=== PATIENT | male | born 2000 | race Caucasian/White ===

== ENCOUNTER 2023-11-11 10:53 | Inpatient (IN) | payer OTHER ==
[~2023-11-11] VITALS: Ht 182.9 cm; Wt 97.7 kg
[2023-11-11] MEDS ORDERED: BUSP10TA PO (11:05)
[2023-11-11] MEDS ORDERED: LAMI25CH PO (11:05)
[2023-11-11] MEDS ORDERED: SERO1TAB3 PO (11:05)
[2023-11-11] MEDS ORDERED: LAMI25TA PO (11:39)
[2023-11-11] MEDS ORDERED: HOME MED LIST COMPLETE! XX SCH (11:40)
[2023-11-11 11:47] LABS: HEMATOCRIT 45.1 % (42.0-52.0); HEMOGLOBIN 15.1 g/dl (13.5-17.5); MEAN CORPUSCULAR HEMOGLOBIN 29.4 pg (27.0-33.0); MEAN CORPUSCULAR HGB CONC 33.5 g/dl (32.0-36.5); MEAN CORPUSCULAR VOLUME 87.9 fl (80.0-96.0); PLATELET COUNT, AUTOMATED 300 10^3/uL (150-450); RED BLOOD COUNT 5.13 10^6/uL (4.30-6.10); WHITE BLOOD COUNT 7.5 10^3/uL (4.0-10.0)
[2023-11-11 12:15] LABS: ETHYL ALCOHOL (ETHANOL) 0.005 % (0.000-0.010)
[2023-11-11 12:16] LABS: ALBUMIN 4.4 G/DL (3.2-5.2); ALKALINE PHOSPHATASE 79 U/L (46-116); ALT/SGPT 36 U/L (7.0-40); AST/SGOT 22 U/L (<34); BILIRUBIN,DIRECT 0.2 MG/DL (<0.4); BILIRUBIN,TOTAL 0.4 MG/DL (0.3-1.2); BLOOD UREA NITROGEN 7 MG/DL (9-23); CALCIUM LEVEL 9.7 MG/DL (8.5-10.1); CARBON DIOXIDE LEVEL 28 MMOL/L (20-31); CHLORIDE LEVEL 106 MMOL/L (98-107); CREATININE FOR GFR 1.07 MG/DL (0.70-1.30); GLOMERULAR FILTRATION RATE > 60.0 (>60); GLUCOSE, FASTING 93 MG/DL (60-100); POTASSIUM SERUM 4.2 MMOL/L (3.5-5.1); SALICYLATE LEVEL < 3.0 MG/DL (<30); SODIUM LEVEL 137 MMOL/L (136-145); TOTAL PROTEIN 7.7 G/DL (5.7-8.2)
[2023-11-11 12:18] LABS: THYROID STIMULATING HORMONE 1.478 uIU/ML (0.55-4.78)
[2023-11-11 13:02] LABS: AMPHETAMINES LEVEL URINE NEGATIVE (NEGATIVE); BARBITURATES URINE NEGATIVE (NEGATIVE); BENZODIAZEPINES URINE NEGATIVE (NEGATIVE); CANNABINOIDS URINE NEGATIVE (NEGATIVE); COCAINE METABOLITE URINE NEGATIVE (NEGATIVE); METHADONE URINE NEGATIVE (NEGATIVE); OPIATES URINE NEGATIVE (NEGATIVE); PHENCYCLIDINE URINE NEGATIVE (NEGATIVE)
[2023-11-11] MEDS: busPIRone 10 MG TAB PO SCH (17:06)
[2023-11-11] MEDS: lamoTRIgine 25MG TAB PO SCH (21:20)
[2023-11-11] MEDS: QUEtiapine FUMARATE 25 MG TAB PO SCH (21:20)
[2023-11-13] MEDS ORDERED: MAALOX 30 ML SUSP *UDC PO PRN (13:20)
[2023-11-13] MEDS ORDERED: MOM 30ML SUSPENSION UDC PO PRN (13:20)
[2023-11-13] MEDS ORDERED: ACETAMINOPHEN TAB 650MG DOSE (2X325MG) PO PRN (13:20)
[2023-11-13] MEDS ORDERED: IBUPROFEN 400MG TAB PO PRN (13:20)
[2023-11-13 16:46] VITALS: BP 124/71; TEMP 98.3; O2SAT 98
[2023-11-13 20:45] VITALS: BP 124/71; TEMP 98.3; O2SAT 98
[2023-11-13] MEDS: traZODone 50 MG TAB PO PRN (20:52)
[2023-11-14 06:35] VITALS: BP 105/60; TEMP 98.3; O2SAT 98
[2023-11-14 19:09] VITALS: BP 138/96; TEMP 98.7
[2023-11-14] MEDS: diphenhydrAMINE 25MG CAP PO PRN (21:08)
[2023-11-15 06:27] VITALS: BP 113/55; TEMP 98; O2SAT 98
[2023-11-15 17:46] VITALS: BP 127/80; TEMP 98.8; O2SAT 99
[2023-11-16 06:34] VITALS: BP 118/65; TEMP 98.1; O2SAT 98
[2023-11-16 16:00] VITALS: BP 126/84; TEMP 98.3; O2SAT 99
[2023-11-17 06:41] VITALS: BP 121/65; TEMP 97.7; O2SAT 97
[2023-11-17 16:08] VITALS: BP 126/63; TEMP 97.7; O2SAT 97
[2023-11-18 06:54] VITALS: BP 133/72; TEMP 97.4; O2SAT 98
[2023-11-18 16:00] VITALS: BP 123/61; TEMP 98.3; O2SAT 100
[2023-11-19 06:10] VITALS: BP 113/56; TEMP 97.5; O2SAT 98
[2023-11-19] MEDS ORDERED: BUSP10TA PO (11:52)
[2023-11-19] MEDS ORDERED: TRAZ-252 PO (11:52)
[2023-11-19] MEDS ORDERED: LAMI25TA PO (11:52)
[2023-11-19] MEDS ORDERED: SERO1TAB3 PO (11:52)
[2023-11-19 17:05] VITALS: BP 140/83; TEMP 98.4; O2SAT 96
== END 2023-11-19 23:00 | DRG 881 ==
LOC: EDBD 10:53 → M ED 10:53 → M ED INP 11-13 13:17 → M PSY 11-13 14:29
PROVIDERS: ADMIT Psychiatry & Neurology Child & Adolescent Psychiatry; ATTEND Psychiatry & Neurology Child & Adolescent Psychiatry
DX: F32.A Depression, unspecified (principal); R45.851 Suicidal ideations; F43.10 Post-traumatic stress disorder, unspecified; F41.9 Anxiety disorder, unspecified; Z91.82 Personal history of military deployment; Z91.51 Personal history of suicidal behavior; Z81.8 Family history of other mental and behavioral disorders; Z79.899 Other long term (current) drug therapy; Z91.018 Allergy to other foods; Z56.4 Discord with boss and workmates

== ENCOUNTER 2024-02-04 13:25 | Emergency (ER) | payer OTHER ==
[~2024-02-04] VITALS: Ht 182.9 cm; Wt 99.1 kg
[~2024-02-04 13:25] MED LIST: BUSP10TA PO; LAMI25CH PO; LAMI25TA PO; SERO1TAB3 PO; TRAZ-252 PO
[2024-02-04 13:27] VITALS: BP 131/69; TEMP 97.1; O2SAT 98
[2024-02-04] MEDS ORDERED: IBUP200T46 PO (13:32)
[2024-02-04] MEDS ORDERED: MELO15TA28 PO (14:19)
== END 2024-02-04 14:30 | disposition home or self-care (01) ==
LOC: M ED 13:25
DX: S92.354A Nondisplaced fracture of fifth metatarsal bone, right foot, initial encounter for closed fracture (principal); X50.0XXA Overexertion from strenuous movement or load, initial encounter; Y93.67 Activity, basketball; Y92.9 Unspecified place or not applicable; Y99.9 Unspecified external cause status; F17.200 Nicotine dependence, unspecified, uncomplicated